=== PATIENT | male | born 1960 | race Caucasian/White ===

== ENCOUNTER 2019-07-29 05:17 | Emergency (ER) | payer OTHER ==
[2019-07-29] MEDS ORDERED: KETOROLAC 30 MG/ML INJ ONE (05:35)
[2019-07-29] MEDS ORDERED: NA CHLORIDE 0.9% 1,000 ML ONE (05:35)
[2019-07-29 05:56] LABS: Absolute Lymphocytes (CBC) 2.6 K/uL (0.7-4.9); Basophils % 1.1 % (0-1.3); Hematocrit 47.4 % (39.6-49.0); Lymphocytes % 32.5 % (15.3-44.8); MPV 8.5 fL (7.6-11.3); RBC Red Blood Cell Count 5.32 M/uL (4.33-5.43)
[2019-07-29 06:20] LABS: Albumin 3.8 g/dL (3.4-5.0); Bilirubin Direct 0.2 mg/dL (0-0.2); Bilirubin Total 0.7 mg/dL (0.2-1.0); Potassium 3.8 mmol/L (3.5-5.1); Protein, Total 7.3 g/dL (6.4-8.2)
[2019-07-29] MEDS ORDERED: MORPHINE 4 MG/ML SYR ONE (06:20)
[2019-07-29] MEDS ORDERED: ONDANSETRON 4 MG/2 ML VIAL ONE (06:20)
[2019-07-29 07:49] LABS: Urine Blood 3+ (NEG); Urine Glucose NEGATIVE (NEG); Urine Protein 2+ (NEG); Urine Specific Gravity >1.030 (1.005-1.030); Urine pH 5.5 (5.0-7.0)
[2019-07-29 07:52] LABS: Urine Bacteria 20-50 /HPF (NONE SEEN); Urine RBC >50 /HPF (NONE SEEN)
[2019-07-29 07:53] LABS: Urine Culture Reflex Order REFLEXED; Urine Mucus MOD /HPF (NONE SEEN)
--- NOTE | 2019-07-29 08:13 | ER ---
Nurse's Notes [facility] Name: Jimbo Mercer Age: 59 yrs Sex: Male : 1960 Arrival Date: 07/29/2019 Time: 05:19 Bed 7 Private MD: Diagnosis: Calculus of kidney with calculus of ureter Presentation: 07/29 05:26 Presenting complaint: Patient states: he has had kidney stones in the past and thinks bb he is having another stone. he has left sided flank pain 9/10 with difficulty urinating pain has been intermittent x 1 week but now has worsened. Transition of care: patient was not received from another setting of care. Onset of symptoms was July 22, 2019. Risk Assessment: Do you want to hurt yourself or someone else? Patient reports no desire to harm self or others. Initial Sepsis Screen: Does the patient meet any 2 criteria? No. Patient's initial sepsis screen is negative. Does the patient have a suspected source of infection? No. Patient's initial sepsis screen is negative. Care prior to arrival: None. 05:26 Method Of Arrival: Ambulatory bb 05:26 Acuity: MAKAYLA 3 bb Historical: - Allergies: 05:28 No Known Allergies; bb - Home Meds: 05:28 None [Active]; bb - PMHx: 05:28 Hypertension; Kidney stones; bb - PSHx: 05:28 None; bb - Immunization history:: Adult Immunizations up to date. - Social history:: Smoking status: Patient/guardian denies using tobacco, Patient/guardian denies using alcohol. - Ebola Screening: : No symptoms or risks identified at this time. Screenin:30 Abuse screen: Denies threats or abuse. Nutritional screening: No deficits noted. jb4 Tuberculosis screening: No symptoms or risk factors identified. Fall Risk IV access (20 points). Total Oliveros Fall Scale indicates No Risk (0-24 pts). Assessment: 05:30 General: Appears in no apparent distress. uncomfortable, Behavior is calm, cooperative. jb4 Pain: Complains of pain in left low back Pain does not radiate. Pain currently is 9 out of 10 on a pain scale. Quality of pain is described as stabbing. Neuro: Level of Consciousness is awake, alert, obeys commands, Oriented to person, place, time, situation. Cardiovascular: Patient's skin is warm and dry. Respiratory: Airway is patent Respiratory effort is even, unlabored, Respiratory pattern is regular, symmetrical. GI: No deficits noted. No signs and/or symptoms were reported involving the gastrointestinal system. : Reports pain in left in lower back with urination. EENT: No deficits noted. No signs and/or symptoms were reported regarding the EENT system. Derm: Skin is intact, Skin is pink, warm \T\ dry. Musculoskeletal: Circulation, motion, and sensation intact. Range of motion: intact in all extremities. 06:37 Reassessment: Patient appears in no apparent distress at this time. Patient and/or jb4 family updated on plan of care and expected duration. Pain level reassessed. Patient is alert, oriented x 3, equal unlabored respirations, skin warm/dry/pink. Patient states feeling better. 07:34 Reassessment: Patient appears in no apparent distress at this time. No changes from tw2 previously documented assessment. Patient and/or family updated on plan of care and expected duration. Pain level reassessed. Patient is alert, oriented x 3, equal unlabored respirations, skin warm/dry/pink. 08:00 Reassessment: Patient appears in no apparent distress at this time. No changes from tw2 previously documented assessment. Patient and/or family updated on plan of care and expected duration. Pain level reassessed. Patient is alert, oriented x 3, equal unlabored respirations, skin warm/dry/pink. 09:06 Reassessment: Patient appears in no apparent distress at this time. No changes from tw2 previously documented assessment. Patient and/or family updated on plan of care and expected duration. Pain level reassessed. Patient is alert, oriented x 3, equal unlabored respirations, skin warm/dry/pink. Patient states feeling better. Vital Signs: 05:28 BP 168 / 96; Pulse 69; Resp 18 S; Temp 97.4(O); Pulse Ox 100% on R/A; Weight 102.06 kg bb (R); Height 6 ft. 3 in. (190.50 cm) (R); Pain 9/10; 06:30 BP 155 / 89; Pulse 67; Resp 16; Pulse Ox 100% on R/A; jb4 07:34 BP 133 / 82; Pulse 72; Resp 17; Pulse Ox 97% on R/A; tw2 08:15 BP 143 / 86; Pulse 55; Resp 17; Pulse Ox 97% on R/A; tw2 09:06 BP 126 / 82; Pulse 54; Resp 17; Pulse Ox 98% on R/A; tw2 05:28 Body Mass Index 28.12 (102.06 kg, 190.50 cm) francine ED Course: 05:19 Patient arrived in ED. ag3 05:28 Triage completed. bb 05:28 Arm band placed on Patient placed in an exam room, on a stretcher, on pulse oximetry. bb Family accompanied patient. 05:30 Patient has correct armband on for positive identification. Placed in gown. Bed in low jb4 position. Call light in reach. Side rails up X 1. Pulse ox on. NIBP on. 05:30 Initial lab(s) drawn, by me, sent to lab. Inserted saline lock: 20 gauge in right jb4 antecubital area, using aseptic technique. Blood collected. 05:32 Guillaume Em, RN is Primary Nurse. jb4 05:56 CT Stone Protocol In Process Unspecified. EDMS 06:00 Harish Hardy NP is PHCP. pm1 06:00 Kit Louise MD is Attending Physician. pm1 08:11 Mellisa Longo MD is Referral Physician. pm1 09:07 No provider procedures requiring assistance completed. IV discontinued, intact, tw2 bleeding controlled, No redness/swelling at site. Pressure dressing applied. Administered Medications: 05:38 Drug: TORadol 30 mg Route: IVP; Site: right antecubital; jb4 06:12 Follow up: Response: No adverse reaction; Pain is decreased jb4 06:12 Drug: NS 0.9% 1000 ml Route: IV; Rate: 1 bolus; Site: right antecubital; jb4 09:00 Follow up: Response: No adverse reaction; IV Status: Completed infusion; IV Intake: tw2 1000ml 06:24 Drug: Zofran 4 mg Route: IVP; Site: right antecubital; jb4 06:36 Follow up: Response: No adverse reaction; Nausea is decreased jb4 06:27 Drug: morphine 4 mg {Note: Rass score 0.} Route: IVP; Site: right antecubital; jb4 06:35 Follow up: Response: No adverse reaction; Pain is decreased; RASS: Alert and Calm (0) jb4 08:24 Drug: Cipro 500 mg Route: PO; sg 09:00 Follow up: Response: No adverse reaction tw2 08:24 Drug: Flomax 0.4 mg Route: PO; sg 09:00 Follow up: Response: No adverse reaction tw2 Intake: 09:00 IV: 1000ml; Total: 1000ml. tw2 Outcome: 08:12 Discharge ordered by MD. pm1 09:07 Discharged to home ambulatory, with significant other. tw2 09:07 Condition: stable 09:07 Discharge instructions given to patient, significant other, Instructed on discharge instructions, follow up and referral plans. no drinking with medication, no driving heavy equipment, medication usage, Demonstrated understanding of instructions, follow-up care, medications, Prescriptions given X 4. 09:07 Patient left the ED. tw2 Signatures: Dispatcher [employer] EDMS Keith Edwards RN RN sg Bella Araiza RN RN bb Harish Hardy, [employer] SPECIALIST pm1 Norma Borjas RN RN tw2 Guillaume Em RN RN jb4 Tayler Galeano 3
--- NOTE | 2019-07-29 08:13 | EDPHYS ---
Physician Documentation [facility] Name: Jimbo Mercer Age: 59 yrs Sex: Male : 1960 Arrival Date: 07/29/2019 Time: 05:19 Bed 7 Private MD: ED Physician Kit Louise HPI: 07/29 05:38 This 59 yrs old Male presents to ER via Ambulatory with complaints of Back pm1 Pain. 05:38 The patient presents with pain that is acute, with no known mechanism of injury. The pm1 symptoms are located in the left low back. Onset: The symptoms/episode began/occurred 1 week(s) ago. The pain does not radiate. Associated signs and symptoms: The patient has no apparent associated signs or symptoms, Pertinent negatives: abdominal pain, chest pain, dysuria, fever, nausea, numbness, tingling, vomiting, weakness. The problem was sustained history of kidney stones and feels like prior stones. Modifying factors: The patient symptoms are alleviated by nothing, the patient symptoms are aggravated by nothing. The patient has not recently seen a physician. Historical: - Allergies: 05:28 No Known Allergies; bb - Home Meds: 05:28 None [Active]; bb - PMHx: 05:28 Hypertension; Kidney stones; bb - PSHx: 05:28 None; bb - Immunization history:: Adult Immunizations up to date. - Social history:: Smoking status: Patient/guardian denies using tobacco, Patient/guardian denies using alcohol. - Ebola Screening: : No symptoms or risks identified at this time. ROS: 05:38 Constitutional: Negative for fever, chills, and weight loss, Neck: Negative for injury, pm1 pain, and swelling, Cardiovascular: Negative for chest pain, palpitations, and edema, Respiratory: Negative for shortness of breath, cough, wheezing, and pleuritic chest pain, Abdomen/GI: Negative for abdominal pain, nausea, vomiting, diarrhea, and constipation. 05:38 : Negative for injury, bleeding, discharge, and swelling, MS/Extremity: Negative for injury and deformity, Skin: Negative for injury, rash, and discoloration. 05:38 Neuro: Negative for headache, weakness, numbness, tingling, and seizure. 05:38 Back: Positive for flank pain, on the left. Exam: 05:38 Constitutional: This is a well developed, well nourished patient who is awake, alert, pm1 and in no acute distress. Head/Face: Normocephalic, atraumatic. Eyes: Pupils equal round and reactive to light, extra-ocular motions intact. Lids and lashes normal. Conjunctiva and sclera are non-icteric and not injected. Cornea within normal limits. Periorbital areas with no swelling, redness, or edema. ENT: Nares patent. No nasal discharge, no septal abnormalities noted. Tympanic membranes are normal and external auditory canals are clear. Oropharynx with no redness, swelling, or masses, exudates, or evidence of obstruction, uvula midline. Mucous membranes moist. Neck: Trachea midline, no thyromegaly or masses palpated, and no cervical lymphadenopathy. Supple, full range of motion without nuchal rigidity, or vertebral point tenderness. No Meningismus. Chest/axilla: Normal chest wall appearance and motion. Nontender with no deformity. No lesions are appreciated. Cardiovascular: Regular rate and rhythm with a normal S1 and S2. No gallops, murmurs, or rubs. No pulse deficits. Respiratory: Lungs have equal breath sounds bilaterally, clear to auscultation and percussion. No rales, rhonchi or wheezes noted. No increased work of breathing, no retractions or nasal flaring. Abdomen/GI: Soft, non-tender, with normal bowel sounds. No distension or tympany. No guarding or rebound. No evidence of tenderness throughout. Back: No spinal tenderness. No costovertebral tenderness. Full range of motion. Skin: Warm, dry with normal turgor. Normal color with no rashes, no lesions, and no evidence of cellulitis. MS/ Extremity: Pulses equal, no cyanosis. Neurovascular intact. Full, normal range of motion. 05:38 Neuro: Orientation: is normal, Motor: is normal, moves all fours. Vital Signs: 05:28 BP 168 / 96; Pulse 69; Resp 18 S; Temp 97.4(O); Pulse Ox 100% on R/A; Weight 102.06 kg bb (R); Height 6 ft. 3 in. (190.50 cm) (R); Pain 9/10; 06:30 BP 155 / 89; Pulse 67; Resp 16; Pulse Ox 100% on R/A; jb4 07:34 BP 133 / 82; Pulse 72; Resp 17; Pulse Ox 97% on R/A; tw2 08:15 BP 143 / 86; Pulse 55; Resp 17; Pulse Ox 97% on R/A; tw2 09:06 BP 126 / 82; Pulse 54; Resp 17; Pulse Ox 98% on R/A; tw2 05:28 Body Mass Index 28.12 (102.06 kg, 190.50 cm) bb MDM: 05:31 Patient medically screened. tw4 08:10 Data reviewed: vital signs. Data interpreted: Pulse oximetry: on room air is 97 %. pm1 Interpretation: normal. Counseling: I had a detailed discussion with the patient and/or guardian regarding: the historical points, exam findings, and any diagnostic results supporting the discharge/admit diagnosis, lab results, radiology results, the need for outpatient follow up, a urologist, to return to the emergency department if symptoms worsen or persist or if there are any questions or concerns that arise at home. 07/29 05:32 Order name: Basic Metabolic Panel; Complete Time: 06:21 07/29 05:32 Order name: CBC with Diff; Complete Time: 06:02 07/29 05:32 Order name: Creatinine for Radiology; Complete Time: 06:21 07/29 05:32 Order name: Hepatic Function; Complete Time: 06:21 07/29 05:32 Order name: Lipase; Complete Time: 06:21 07/29 06:32 Order name: Urine Microscopic Only; Complete Time: 07:55 pm1 07/29 05:32 Order name: CT Stone Protocol tw4 07/29 07:03 Order name: Urine Dipstick--Ancillary (enter results); Complete Time: 07:55 bd 07/29 07:56 Order name: Urine Culture EDMS 07/29 05:32 Order name: IV Saline Lock; Complete Time: 05:32 tw4 07/29 05:32 Order name: Labs collected and sent; Complete Time: 05:32 07/29 06:32 Order name: Urine Dipstick-Ancillary (obtain specimen); Complete Time: 07:00 pm1 Administered Medications: 05:38 Drug: TORadol 30 mg Route: IVP; Site: right antecubital; jb4 06:12 Follow up: Response: No adverse reaction; Pain is decreased jb4 06:12 Drug: NS 0.9% 1000 ml Route: IV; Rate: 1 bolus; Site: right antecubital; jb4 09:00 Follow up: Response: No adverse reaction; IV Status: Completed infusion; IV Intake: tw2 1000ml 06:24 Drug: Zofran 4 mg Route: IVP; Site: right antecubital; jb4 06:36 Follow up: Response: No adverse reaction; Nausea is decreased jb4 06:27 Drug: morphine 4 mg {Note: Rass score 0.} Route: IVP; Site: right antecubital; jb4 06:35 Follow up: Response: No adverse reaction; Pain is decreased; RASS: Alert and Calm (0) jb4 08:24 Drug: Cipro 500 mg Route: PO; sg 09:00 Follow up: Response: No adverse reaction tw2 08:24 Drug: Flomax 0.4 mg Route: PO; sg 09:00 Follow up: Response: No adverse reaction tw2 Disposition: 07/30 04:29 Co-signature as Attending Physician, Kit Louise MD I agree with the assessment and tw4 plan of care. Disposition: 07/29/19 08:12 Discharged to Home. Impression: Calculus of kidney with calculus of ureter. - Condition is Stable. - Discharge Instructions: Kidney Stones, Dietary Guidelines to Help Prevent Kidney Stones. - Prescriptions for Tylenol- Codeine #3 300-30 mg Oral Tablet - take 2 tablets by ORAL route every 6 hours As needed; 20 tablet. Zofran 4 mg Oral Tablet - take 1 tablet by ORAL route every 8 hours As needed; 20 tablet. Flomax 0.4 mg Oral Capsule, Sust. Release 24 hr - take 1 capsule by ORAL route once daily 1/2 hour following the same meal each day; 10 capsule. Cipro 500 mg Oral Tablet - take 1 tablet by ORAL route every 12 hours for 7 days; 14 tablet. - Work release form, Medication Reconciliation Form, Thank You Letter, Antibiotic Education, Prescription Opioid Use form. - Follow up: Mellisa Longo MD; When: 2 - 3 days; Reason: Recheck today's complaints, Continuance of care, Re-evaluation by your physician. - Problem is new. - Symptoms have improved. Signatures: Dispatcher [employer] EDKeith Turk RN RN sg Bella Araiza, RN RN bb Harish Hardy NP SENIOR SOFTWARE DEVELOPMENT ENGINEER pm1 Norma Borjas RN RN tw2 Guillaume Em RN RN jb4 Kit Louise MD MD tw4 Corrections: (The following items were deleted from the chart) 07/29 08:11 08:10 Counseling: I had a detailed discussion with the patient and/or guardian pm1 regarding: the historical points, exam findings, and any diagnostic results supporting the discharge/admit diagnosis, lab results, radiology results, the need for outpatient follow up, to return to the emergency department if symptoms worsen or persist or if there are any questions or concerns that arise at home, pm1 09:07 08:12 07/29/2019 08:12 Discharged to Home. Impression: Calculus of kidney with calculus tw2 of ureter. Condition is Stable. Forms are Medication Reconciliation Form, Thank You Letter, Antibiotic Education, Prescription Opioid Use. Follow up: Mellisa Longo; When: 2 - 3 days; Reason: Recheck today's complaints, Continuance of care, Re-evaluation by your physician. Problem is new. Symptoms have improved. pm1
[2019-07-29] MEDS ORDERED: CIPROFLOXACIN HCL 500 MG TAB ONE (08:15)
[2019-07-29] MEDS ORDERED: TAMSULOSIN 0.4 MG SR CAP ONE (08:15)
[2019-07-29 09:13] VITALS: TEMP 97.4
[2019-07-29 09:17] VITALS: BP 126/82; O2SAT 98
--- NOTE | 2019-07-29 10:53 | RAD REPORT ---
EXAM DESCRIPTION: CT Abdomen and Pelvis Without Intravenous Contrast CLINICAL HISTORY: FLANK PAIN TECHNIQUE: Axial computed tomography images of the abdomen and pelvis without intravenous contrast. Sagittal and coronal reformatted images were created and reviewed. This CT exam was performed usi ng one or more of the following dose reduction techniques: automated exposure control, adjustment o f the mA and/or kV according to patient size, and/or use of iterative reconstruction technique. COMPARISON: No relevant prior studies available. FINDINGS: Limitations: None. Lung bases: Unremarkable. No mass. No consolidation. ABDOMEN: Liver: Fatty liver. Gallbladder and bile ducts: Unremarkable. No calcified stones. No ductal dilation. Pancreas: Unremarkable. No ductal dilation. Spleen: Unremarkable. No splenomegaly. Adrenals: Unremarkable. No mass. Kidneys and ureters: Mild bilateral hydronephrosis. Two a 4 mm stones at the left UVJ present. Multiple 1-2 mm stones noted within the central left kidney. There is a 4 mm stone just proximal to the right UPJ. There are multiple nonobstructing stones within the central right kidney the lar gest measuring 8 mm. 2 cm diameter fluid density benign right renal cyst noted. Stomach and bowel: Colonic diverticulosis noted. No diverticulitis. No obstruction. PELVIS: Appendix: No findings to suggest acute appendicitis. Bladder: Unremarkable. No stones. Reproductive: Unremarkable as visualized. ABDOMEN and PELVIS: Intraperitoneal space: Unremarkable. No free air. No significant fluid collection. Bones/joints: No acute fracture. No dislocation. Soft tissues: Very small umbilical hernia noted containing fat. Vasculature: There is atherosclerosis of the aorta without aneurysm. Lymph nodes: Unremarkable. No enlarged lymph nodes. IMPRESSION: Mild bilateral hydronephrosis with two stones at the left UVJ and one stone just proxima l to the right UPJ. Electronically signed by: Lizeth Pereira MD 07/29/2019 6:08 AM CDT Due to temporary technical issues with the PACS/Fluency reporting system, reports are being signed by the in house radiologist as a courtesy to ensure prompt reporting. The interpreting radiologist is f ully responsible for the content of the report.
== END 2019-07-29 09:07 | disposition home or self-care (01) ==
LOC: ER 05:17
DX: N20.2 Calculus of kidney with calculus of ureter (principal); I10 Essential (primary) hypertension; Z87.442 Personal history of urinary calculi
CPT/HCPCS: 96361; 87088; 85025; 80048; 36415; 80076; 83690; 76377; 74176; 96375; 96374; 99284; J7030; J2405; 81003; 81015; 87086